=== PATIENT | male | born 1985 | race Two or more races ===

== ENCOUNTER 2025-05-26 01:08 | Emergency (ER) | payer MEDICAID, OTHER ==
[~2025-05-26] VITALS: Ht 175.3 cm; Wt 81.8 kg
[2025-05-26 01:30] VITALS: BP 118/66; PULSE 101; RESP 20; TEMP 98.9; O2SAT 97
== END 2025-05-26 06:41 | disposition left against medical advice (07) ==
LOC: ER 01:08
DX: R51.9 Headache, unspecified (principal); M54.2 Cervicalgia; M54.9 Dorsalgia, unspecified; Z53.21 Procedure and treatment not carried out due to patient leaving prior to being seen by health care provider